=== PATIENT | male | born 1970 | race Caucasian/White ===

== ENCOUNTER 2023-10-22 12:20 | Day surgery (SDC) | payer OTHER, SELFPAY ==
[2023-10-22] VITALS (7 sets, daily range): BP systolic 84–104; BP diastolic 52–74; PULSE 66–80; RESP 12–22; O2SAT 94–97
[2023-10-22] MEDS: LACTATED RINGERS 1,000 ML 100 ML IV (13:07)
--- NOTE | 2023-10-22 13:11 | P.HP_ITS ---
History of Present Illness History of Present Illness Date Patient Seen: 10/22/23 Time Patient Seen: 13:11 Chief complaint: Colonoscopy Narrative: 53-year-old man here for 1st time screening colonoscopy. No family history of colon cancer in first-degree relatives. No abdominal concerns today. [facility] Social History Smoking Status: Former smoker alcohol intake: never Meds Home Medications and Allergies Home Medications Medication Instructions Recorded Confirmed Type peg 3350-sod sulf,[id number] 1,000 ml PO DIRECTED #2,000 mL 09/19/23 Rx 178.7-7.3-0.5-1.12-0.9 gram oral soln (Suflave) Fluoxetine 10 mg PO DAILY 10/22/23 10/22/23 History Losartan 100 mg PO DAILY 10/22/23 10/22/23 History Metoprolol 50 mg PO DAILY 10/22/23 10/22/23 History Pantoprazole 20 mg PO DAILY 10/22/23 History Allergies Allergy/AdvReac Type Severity Reaction Status Date / Time No Known Drug Allergies Allergy Verified 10/22/23 12:47 Exam Narrative Exam Narrative: General adult man alert oriented no acute distress Chest nonlabored respiration Extremities warm well perfused Assessment & Plan Assessment & Plan narrative: The patient requires colorectal screening and colonoscopy is recommended. Technical details were discussed. Risks, benefits, alternatives explained. Risks including but not limited to myocardial infarction, aspiration, bleeding, pain, missed lesion, incomplete examination, need for further radiographic studies, intestinal injury, and need for major abdominal surgery were discussed. All questions were answered to their satisfaction, and they are in agreement with this plan.
--- NOTE | 2023-10-22 13:16 | P.OP.COLON_ITS ---
Operative Date/Time/Diagnoses Date of procedure: 10/22/23 Time of procedure: 13:16 Pre-op diagnosis: Colorectal screening Procedure & Clinicians Study performed: Screening colonoscopy Same procedure as scheduled: Yes Indications: Colorectal screening Surgeon: Williams Hammonds Procedure Notes Procedure in detail: The history and physical was performed/updated and the patient is ASA class is 2. The procedure was discussed in detail with the patient. Potential risks co mplications including infection, bleeding, missed diagnosis, perforation, need for surgery, and were explained. Their questions were answered and informed consent was obtained. Patient was brought to the procedure room and placed standard monitoring equipment. The patient's vital signs were monitored continuously throughout the entire procedure. Prior to starting time-out was performed. The patient was placed in the left lateral recumbent position. Procedural sedation was administered by anesthesia. Examination began with a thorough inspection of the perianal area there was no evidence of fissures, fistulae, external hemorrhoids or cutaneous malignancy. The colonoscopy scope was then placed into the anal canal and was advanced to the cecum, which was identified by the ileocecal valve, the appendiceal orifice and the confluence of the taenia. The scope was then slowly withdrawn examining colon thoroughly in all directions, irrigating it of any residual stool. The scope was retroflexed within the rectum The patient tolerated the procedure well. They will be discharged once criteria are met. The prep was of good/excellent quality. The withdrawl time was 6 minutes. FINDINGS * Unremarkable colonoscopy. Normal healthy colonic mucosa without polyps. Specimen(s): none sent Impression: Normal colonoscopy Post-procedure Recommendations: Colonoscopy in 10 years Disposition: same day surgery
--- NOTE | 2023-10-22 15:01 | SUR.PHASEI ---
Late entry: Assumed care at 1350. Report received from Elvira Woodruff RN.
== END 2023-10-22 14:18 | disposition home or self-care (01) ==
PROVIDERS: PCP Internal Medicine; Referring Provider Surgery; Visit Provider Surgery
PROC: 0DJD8ZZ Inspection of Lower Intestinal Tract, Via Natural or Artificial Opening Endoscopic (ICD-10-PCS; CPT 45378; principal; 2023-10-22 13:45)
DX: Z12.11 Encounter for screening for malignant neoplasm of colon (principal)
CPT/HCPCS: 45378; J2704